=== PATIENT | male | born 1935 | race Caucasian/White ===

== ENCOUNTER 2017-03-02 11:48 | Inpatient (IN) | payer OTHER ==
[~2017-03-02] VITALS: Ht 172.7 cm; Wt 108.0 kg
[~2017-03-02 11:48] MED LIST: AMPICILLIN-SULBA3 GM IV; CIPROFLOXA400 MG/40 IV; METRONIDAZOLE500 MG PO; PROTONIX40 MG PO
[2017-03-02] MEDS ORDERED: SIMVASTATIN40 MG (12:10)
[2017-03-02] MEDS ORDERED: LOSARTAN-HCTZ1 EAC2 (12:10)
[2017-03-02] MEDS ORDERED: HUMALOG MI100 UNIT/2 (12:10)
[2017-03-02] MEDS ORDERED: HUMALOG100 UNIT/1 (12:10)
[2017-03-02] MEDS ORDERED: SYNTHROID200 MCG (12:10)
[2017-03-10] MEDS ORDERED: AMLODIPINE BESY10 MG PO (15:13)
[2017-03-10] MEDS ORDERED: DOXYCYCLINE HY100 MG PO (15:13)
[2017-03-10] MEDS ORDERED: HYZAAR 100-12.1 EACH PO (15:13)
[2017-03-10] MEDS ORDERED: SIMVASTATIN40 MG PO (15:13)
== END 2017-03-10 15:50 | disposition home or self-care (01) | DRG 988 ==
LOC: ER 11:48 → MEDJ 18:46
PROC: 0X940ZX Drainage of Right Axilla, Open Approach, Diagnostic (ICD-10-PCS; principal; 2017-03-02)
PROC: 0Y950ZX Drainage of Right Inguinal Region, Open Approach, Diagnostic (ICD-10-PCS; 2017-03-02)
PROC: B246ZZZ Ultrasonography of Right and Left Heart (ICD-10-PCS; 2017-03-03)
PROC: 8E0ZXY6 Isolation (ICD-10-PCS; 2017-03-03)
PROC: 0X940ZX Drainage of Right Axilla, Open Approach, Diagnostic (ICD-10-PCS; 2017-03-05)
PROC: 0J9L0ZX Drainage of Right Upper Leg Subcutaneous Tissue and Fascia, Open Approach, Diagnostic (ICD-10-PCS; 2017-03-05)
DX: L02.411 Cutaneous abscess of right axilla (principal); L02.214 Cutaneous abscess of groin; L02.415 Cutaneous abscess of right lower limb; R78.81 Bacteremia; B95.62 Methicillin resistant Staphylococcus aureus infection as the cause of diseases classified elsewhere; E78.4 Other hyperlipidemia; I12.9 Hypertensive chronic kidney disease with stage 1 through stage 4 chronic kidney disease, or unspecified chronic kidney disease; E11.22 Type 2 diabetes mellitus with diabetic chronic kidney disease; E11.65 Type 2 diabetes mellitus with hyperglycemia; N18.1 Chronic kidney disease, stage 1; K29.60 Other gastritis without bleeding